=== PATIENT | female | born 1980 | race Caucasian/White ===

== ENCOUNTER 2017-11-02 04:16 | Inpatient (IN) | payer OTHER ==
[2017-11-02] MEDS: HYDROmorphONE 1 MG/ML SYG IV (04:35)
[2017-11-02] MEDS ORDERED: NITROGLYCERIN (SL) 0.4 MG TAB SL (05:00)
[2017-11-02] MEDS ORDERED: ONDANSETRON 4 MG INJ IV (05:00)
[2017-11-02] MEDS ORDERED: VANCOMYCIN IV PER PHARMACY XX (05:00)
[2017-11-02] MEDS: PANTOPRAZOLE 40 MG INJ IV (06:27)
[2017-11-02] MEDS: HYDROmorphONE 0.5 MG/0.5 ML SYG IV (06:27)
[2017-11-02] MEDS: CIPROFLOXACIN 400MG/D5W 200 ML IVPB (06:28)
[2017-11-02] MEDS: SOD CHLORIDE 0.9% 1,000 ML IV ×2 (06:28→14:26)
[2017-11-02 07:00] LABS: ADD MAN DIFF? NO
[2017-11-02 07:05] LABS: WHITE BLOOD COUNT 8.3 10^3/ul (4.8-10.8)
[2017-11-02 07:05] LABS: BASOPHILS % 0.4 % (0.0-2.0); EOSINOPHILS # 0.2 10^3/ul (0.0-0.5); EOSINOPHILS % 1.8 % (0.0-7.0); HEMATOCRIT 28.2 % (37.0-47.0); HEMOGLOBIN 9.1 g/dl (12.0-16.0); LYMPHOCYTES # 2.6 10^3/ul (0.8-2.9); LYMPHOCYTES % 30.8 % (15.0-51.0); MEAN CORPUSCULAR HEMOGLOBIN 30.3 pg (29.0-33.0); MEAN CORPUSCULAR HGB CONC 32.3 g/dl (32.0-37.0); MEAN PLATELET VOLUME 9.5 fl (7.4-10.4); MONOCYTE # 0.4 10^3/ul (0.3-0.9); MONOCYTES % 4.2 % (0.0-11.0); NEUTROPHIL # 5.2 10^3/ul (1.6-7.5); NEUTROPHILS % 62.4 % (39.0-77.0); PLATELET COUNT 450 10^3/UL (140-415); RED CELL DISTRIBUTION WIDTH 14.2 % (11.5-14.5)
[2017-11-02 07:15] LABS: ADD UMIC YES; UR ASCORBIC ACID NEGATIVE (NEGATIVE); UR BILIRUBIN (Dip) NEGATIVE (NEGATIVE); UR BLOOD (Dip) NEGATIVE (NEGATIVE); UR CLARITY CLEAR (CLEAR); UR COLOR YELLOW (YELLOW); UR GLUCOSE (Dip) NEGATIVE (NEGATIVE); UR KETONES (Dip) NEGATIVE (NEGATIVE); UR LEUKOCYTE ESTERASE (Dip) NEGATIVE Leu/ul (NEGATIVE); UR NITRITE (Dip) POSITIVE (NEGATIVE); UR RBC 1 /HPF (0-5); UR SPECIFIC GRAVITY (Dip) 1.016 (1.003-1.030); UR TOTAL PROTEIN (Dip) NEGATIVE (NEGATIVE); UR UROBILINOGEN (Dip) NEGATIVE (NEGATIVE); UR WBC 5 /HPF (0-5)
[2017-11-02 07:19] LABS: LACTIC ACID 1.1 mmol/L (0.5-2.0)
[2017-11-02 07:21] LABS: ALANINE AMINOTRANSFERASE 27 IU/L (13-69); ALBUMIN/GLOBULIN RATIO 0.93; ALKALINE PHOSPHATASE 113 IU/L (42-121); ANION GAP 12 (8-16); ASPARTATE AMINO TRANSFERASE 54 IU/L (15-46); BILIRUBIN,INDIRECT 0.2 mg/dl (0-1.1); BILIRUBIN,TOTAL 0.2 mg/dl (0.2-1.3); BLOOD UREA NITROGEN 7 mg/dl (7-20); CARBON DIOXIDE 24 mmol/L (21-31); CHLORIDE 108 mmol/L (97-110); CREATININE 0.39 mg/dl (0.44-1.00); GLUCOSE 92 mg/dl (70-220); POTASSIUM 3.8 mmol/L (3.5-5.1); SODIUM 140 mmol/L (135-144); TOTAL PROTEIN 8.3 g/dl (6.1-8.1)
[2017-11-02 07:22] LABS: MAGNESIUM 1.9 mg/dl (1.7-2.5)
[2017-11-02 07:28] LABS: AMPHETAMINE/METHAMPHETAMINE Negative (NEGATIVE); BARBITURATES Negative (NEGATIVE); BENZODIAZEPINES Negative (NEGATIVE); CANNABINOIDS Negative (NEGATIVE); COCAINE Negative (NEGATIVE); OPIATES Positive (NEGATIVE)
[2017-11-02 07:34] LABS: HEMOGLOBIN A1C 5.7 % (0-5.9)
[2017-11-02] MEDS: VANCOMYCIN 2 GM in SOD CHLORIDE 0.9% 500 ML IVPB (07:37)
[2017-11-02 08:10] LABS: ETHANOL < 10.0 mg/dl
[2017-11-02] MEDS ORDERED: AZTREONAM 1 GM/NS (PMX) 50 ML IVPB (09:00)
[2017-11-02] MEDS: BACLOFEN 10 MG TAB PO ×2 (11:08→21:39)
[2017-11-02] MEDS: ACETAMINOPHEN 650MG/20.3ML CUP PO (11:12)
[2017-11-02 12:18] LABS: HIV 1&2 ANTIBODY REACTIVE (NEGATIVE)
[2017-11-02] MEDS: FLUCONAZOLE 100 MG/50 ML (PMX) 50 ML IVPB (12:31)
[2017-11-02] MEDS: METHADONE (1 MG/ML 5 ML PO UD SYG) PO ×2 (13:26→21:39)
[2017-11-02] MEDS: MEROPENEM 1 GM/50ML(PMX) 50 ML IVPB ×2 (13:26→21:39)
[2017-11-02] MEDS: VANCOMYCIN 1.25 GM in SOD CHLORIDE 0.9% 250 ML IVPB (15:21)
[2017-11-03] MEDS: ACETAMINOPHEN 650MG/20.3ML CUP PO ×3 (00:20→14:06)
[2017-11-03] MEDS: SOD CHLORIDE 0.9% 1,000 ML IV ×3 (00:20→20:41)
[2017-11-03] MEDS: VANCOMYCIN 1.25 GM in SOD CHLORIDE 0.9% 250 ML IVPB ×2 (00:20→11:07)
[2017-11-03 05:10] LABS: ADD MAN DIFF? NO
[2017-11-03 05:11] LABS: BASOPHILS % 0.3 % (0.0-2.0); EOSINOPHILS # 0.2 10^3/ul (0.0-0.5); EOSINOPHILS % 2.3 % (0.0-7.0); HEMOGLOBIN 8.9 g/dl (12.0-16.0); LYMPHOCYTES % 28.9 % (15.0-51.0); MEAN CORPUSCULAR HEMOGLOBIN 29.7 pg (29.0-33.0); MEAN CORPUSCULAR HGB CONC 31.8 g/dl (32.0-37.0); MEAN CORPUSCULAR VOLUME 93.3 fl (82.0-101.0); MEAN PLATELET VOLUME 9.4 fl (7.4-10.4); MONOCYTE # 0.3 10^3/ul (0.3-0.9); MONOCYTES % 4.3 % (0.0-11.0); NEUTROPHIL # 4.4 10^3/ul (1.6-7.5); NEUTROPHILS % 63.8 % (39.0-77.0); PLATELET COUNT 404 10^3/UL (140-415); RED CELL DISTRIBUTION WIDTH 13.8 % (11.5-14.5)
[2017-11-03 05:31] LABS: MAGNESIUM 1.9 mg/dl (1.7-2.5)
[2017-11-03 05:33] LABS: ANION GAP 10 (8-16); BLOOD UREA NITROGEN 8 mg/dl (7-20); CALCIUM 9.2 mg/dl (8.4-10.2); CARBON DIOXIDE 25 mmol/L (21-31); CHLORIDE 110 mmol/L (97-110); CREATININE 0.48 mg/dl (0.44-1.00); GLUCOSE 100 mg/dl (70-220); POTASSIUM 3.9 mmol/L (3.5-5.1); SODIUM 141 mmol/L (135-144)
[2017-11-03 05:36] LABS: C-REACTIVE PROTEIN 2.5 mg/dl (0.0-0.9)
[2017-11-03] MEDS: MEROPENEM 1 GM/50ML(PMX) 50 ML IVPB ×2 (05:38→14:00)
[2017-11-03] MEDS: METHADONE (1 MG/ML 5 ML PO UD SYG) PO ×3 (05:39→22:00)
[2017-11-03] MEDS: PANTOPRAZOLE 40 MG INJ IV (05:39)
[2017-11-03] MEDS ORDERED: CEFAZOLIN 1 GM INJ (07:00)
[2017-11-03] MEDS ORDERED: DEXAMETHASONE 4 MG/ML 1 ML INJ (07:00)
[2017-11-03] MEDS ORDERED: ONDANSETRON 4 MG INJ (07:00)
[2017-11-03] MEDS ORDERED: LIDOCAINE 2% (SDV) 5 ML INJ (07:00)
[2017-11-03] MEDS ORDERED: PROPOFOL 200 MG INJ (07:00)
[2017-11-03 07:16] LABS: ERYTHROCYTE SEDIMENTATION RATE 135 mm/Hr (0-20)
[2017-11-03 08:50] LABS: VANCOMYCIN,TROUGH 10.5 ug/ml (10.0-20.0)
[2017-11-03] MEDS: METHYLNALTREXONE 12 MG/0.6 ML VIAL SC (10:00)
[2017-11-03] MEDS: BACLOFEN 10 MG TAB PO ×3 (10:35→21:00)
[2017-11-03] MEDS: POLYETHYLENE GLYCOL 17 GM PACKET PO (10:36)
[2017-11-03 13:31] LABS: LYMPHOCYTE - % CD4 (HELPER) 21 % (30-61); LYMPHOCYTE - %CD8 (SUPPRESSOR) 59 % (12-42); LYMPHOCYTE - ABSOLUTE 2265 cells/uL (850-3900); LYMPHOCYTE - ABSOLUTE CD4 486 cells/uL (490-1740); LYMPHOCYTE - ABSOLUTE CD8 1336 cells/uL (180-1170); LYMPHOCYTE - CD4/CD8 RATIO 0.36 (0.86-5.00)
[2017-11-03 15:12] LABS: RAPID PLASMA REAGIN NONREACTIVE (NR)
[2017-11-03] MEDS: FLUCONAZOLE 100 MG/50 ML (PMX) 50 ML IVPB (16:19)
[2017-11-03] MEDS: VANCOMYCIN 1.5 GM in SOD CHLORIDE 0.9% 250 ML IVPB (18:38)
[2017-11-03] MEDS ORDERED: morphine 10 MG INJ (21:59)
[2017-11-03] MEDS ORDERED: ROCURONIUM 50 MG INJ (22:37)
[2017-11-03] MEDS ORDERED: SUGAMMADEX SODIUM 200 MG/2 ML VIAL IV (22:38)
[2017-11-03] MEDS: CEFAZOLIN 1 GM INJ (23:23)
[2017-11-03] MEDS: GELATIN SIZE 100 SPONGE (23:24)
[2017-11-03] MEDS: HEPARIN 1000 UNITS/ML 10 ML INJ (23:24)
[2017-11-03] MEDS: THROMBIN 5000 UNIT VIAL (23:25)
[2017-11-04] MEDS ORDERED: DEXAMETHASONE 4 MG/ML 1 ML INJ ×2 (00:55→23:43)
[2017-11-04] MEDS ORDERED: ONDANSETRON 4 MG INJ ×2 (00:56→23:43)
[2017-11-04] MEDS ORDERED: SUGAMMADEX SODIUM 200 MG/2 ML VIAL IV (01:23)
[2017-11-04] MEDS ORDERED: HYDROmorphONE 0.5 MG/0.5 ML SYG IV ×2 (01:30)
[2017-11-04] MEDS ORDERED: DIPHENHYDRAMINE 50 MG INJ IV (01:30)
[2017-11-04] MEDS ORDERED: LABETALOL HCL 20MG INJ IV (01:30)
[2017-11-04] MEDS ORDERED: ALBUTEROL 0.083% (NEB) 2.5 MG/3 ML AMP HHN (01:30)
[2017-11-04] MEDS ORDERED: EPHEDrine SULFATE 50 MG/5 ML SYG IV (01:30)
[2017-11-04] MEDS ORDERED: MIDAZOLAM 1 MG/ML 2 ML INJ IV (01:30)
[2017-11-04] MEDS ORDERED: hydrALAzine 20 MG INJ IV (01:30)
[2017-11-04] MEDS ORDERED: METOCLOPRAMIDE 10 MG INJ IV (01:30)
[2017-11-04] MEDS ORDERED: MEPERIDINE 25 MG INJ IV (01:30)
[2017-11-04] MEDS ORDERED: ONDANSETRON 4 MG INJ IV (01:30)
[2017-11-04] MEDS: HYDROmorphONE 0.5 MG/0.5 ML SYG IV ×3 (01:43→04:36)
[2017-11-04] MEDS: MEROPENEM 1 GM/50ML(PMX) 50 ML IVPB ×4 (01:54→21:40)
[2017-11-04] MEDS: VANCOMYCIN 1.5 GM in SOD CHLORIDE 0.9% 250 ML IVPB ×3 (02:47→17:51)
[2017-11-04 05:33] LABS: ADD MAN DIFF? NO
[2017-11-04 05:46] LABS: BASOPHILS % 0.3 % (0.0-2.0); HEMATOCRIT 26.6 % (37.0-47.0); HEMOGLOBIN 8.5 g/dl (12.0-16.0); LYMPHOCYTES # 1.3 10^3/ul (0.8-2.9); LYMPHOCYTES % 11.2 % (15.0-51.0); MEAN CORPUSCULAR HEMOGLOBIN 29.9 pg (29.0-33.0); MEAN CORPUSCULAR VOLUME 93.7 fl (82.0-101.0); MONOCYTE # 0.3 10^3/ul (0.3-0.9); MONOCYTES % 2.5 % (0.0-11.0); NEUTROPHIL # 10.2 10^3/ul (1.6-7.5); NEUTROPHILS % 85.2 % (39.0-77.0); PLATELET COUNT 403 10^3/UL (140-415); RED BLOOD COUNT 2.84 10^6/ul (4.20-5.40); RED CELL DISTRIBUTION WIDTH 14.2 % (11.5-14.5)
[2017-11-04 06:09] LABS: MAGNESIUM 1.8 mg/dl (1.7-2.5)
[2017-11-04] MEDS: METHADONE (1 MG/ML 5 ML PO UD SYG) PO ×3 (06:22→21:40)
[2017-11-04] MEDS: PANTOPRAZOLE 40 MG INJ IV (06:22)
[2017-11-04 06:49] LABS: ALANINE AMINOTRANSFERASE 30 IU/L (13-69); ALBUMIN 3.1 g/dl (3.3-4.9); ALBUMIN/GLOBULIN RATIO 0.81; ALKALINE PHOSPHATASE 89 IU/L (42-121); ANION GAP 12 (8-16); ASPARTATE AMINO TRANSFERASE 67 IU/L (15-46); BILIRUBIN,INDIRECT 0.3 mg/dl (0-1.1); BILIRUBIN,TOTAL 0.3 mg/dl (0.2-1.3); BLOOD UREA NITROGEN 7 mg/dl (7-20); CALCIUM 8.1 mg/dl (8.4-10.2); CARBON DIOXIDE 20 mmol/L (21-31); CHLORIDE 110 mmol/L (97-110); CREATININE 0.44 mg/dl (0.44-1.00); GLUCOSE 112 mg/dl (70-220); POTASSIUM 4.3 mmol/L (3.5-5.1); SODIUM 138 mmol/L (135-144); TOTAL PROTEIN 6.9 g/dl (6.1-8.1)
[2017-11-04] MEDS: POLYETHYLENE GLYCOL 17 GM PACKET PO (08:33)
[2017-11-04] MEDS: BACLOFEN 10 MG TAB PO ×3 (08:33→21:00)
[2017-11-04] MEDS: ACETAMINOPHEN 650MG/20.3ML CUP PO (08:33)
[2017-11-04] MEDS: METHYLNALTREXONE 12 MG/0.6 ML VIAL SC (10:00)
[2017-11-04] MEDS: FLUCONAZOLE 100 MG/50 ML (PMX) 50 ML IVPB (14:32)
[2017-11-04] MEDS: SOD CHLORIDE 0.9% 1,000 ML IV ×2 (16:16→20:00)
[2017-11-04] MEDS: LIDOCAINE 1% (MPF) 5 ML VIAL SC (16:30)
[2017-11-04] MEDS: SOD CHLORIDE 0.9% 100 ML (16:35)
[2017-11-04] MEDS ORDERED: PROPOFOL 20 ML (22:48)
[2017-11-04] MEDS ORDERED: SUCCINYLCHOLINE CHLORIDE 100 MG/5 ML SYG IV (22:48)
[2017-11-04] MEDS ORDERED: ROCURONIUM 50 MG INJ (22:48)
[2017-11-04] MEDS ORDERED: MIDAZOLAM 1 MG/ML 2 ML INJ (22:48)
[2017-11-04] MEDS ORDERED: LIDOCAINE 2% (SDV) 5 ML INJ (22:48)
[2017-11-04] MEDS ORDERED: FENTAnyl 50 MCG/ML VIAL (22:49)
[2017-11-04] MEDS ORDERED: FAMOTIDINE 20 MG INJ (23:44)
[2017-11-05] MEDS: ROPIVACAINE 0.5 % 30 ML VIAL (00:02)
[2017-11-05] MEDS ORDERED: ESMOLOL 10 ML (00:10)
[2017-11-05] MEDS ORDERED: HYDROmorphONE 2 MG/ML SYG (00:10)
[2017-11-05] MEDS ORDERED: PROPOFOL 20 ML (00:11)
[2017-11-05] MEDS: POLYMYXIN/BACITRACIN 1L IRRIG (00:20)
[2017-11-05] MEDS ORDERED: HYDROmorphONE 0.5 MG/0.5 ML SYG IV ×3 (00:30)
[2017-11-05] MEDS ORDERED: DIPHENHYDRAMINE 50 MG INJ IV (00:30)
[2017-11-05] MEDS ORDERED: LABETALOL HCL 20MG INJ IV (00:30)
[2017-11-05] MEDS ORDERED: FENTAnyl 50 MCG/ML VIAL IV ×3 (00:30)
[2017-11-05] MEDS ORDERED: SUGAMMADEX SODIUM 200 MG/2 ML VIAL IV (00:30)
[2017-11-05] MEDS ORDERED: MEPERIDINE 25 MG INJ IV (00:30)
[2017-11-05] MEDS ORDERED: hydrALAzine 20 MG INJ IV (00:30)
[2017-11-05] MEDS ORDERED: ONDANSETRON 4 MG INJ IV (00:30)
[2017-11-05 01:55] LABS: VANCOMYCIN,TROUGH 13.6 ug/ml (10.0-20.0)
[2017-11-05] MEDS: SOD CHLORIDE 0.9% 1,000 ML IV ×3 (02:41→22:41)
[2017-11-05] MEDS: VANCOMYCIN 1.5 GM in SOD CHLORIDE 0.9% 250 ML IVPB ×3 (03:04→17:14)
[2017-11-05 05:10] LABS: ADD MAN DIFF? NO
[2017-11-05 05:35] LABS: BASOPHILS % 0.1 % (0.0-2.0); HEMATOCRIT 25.4 % (37.0-47.0); HEMOGLOBIN 8.1 g/dl (12.0-16.0); LYMPHOCYTES # 1.6 10^3/ul (0.8-2.9); LYMPHOCYTES % 18.2 % (15.0-51.0); MEAN CORPUSCULAR HEMOGLOBIN 30.3 pg (29.0-33.0); MEAN CORPUSCULAR HGB CONC 31.9 g/dl (32.0-37.0); MEAN CORPUSCULAR VOLUME 95.1 fl (82.0-101.0); MEAN PLATELET VOLUME 9.8 fl (7.4-10.4); MONOCYTE # 0.4 10^3/ul (0.3-0.9); MONOCYTES % 4.7 % (0.0-11.0); NEUTROPHIL # 6.8 10^3/ul (1.6-7.5); NEUTROPHILS % 76.7 % (39.0-77.0); PLATELET COUNT 383 10^3/UL (140-415); RED BLOOD COUNT 2.67 10^6/ul (4.20-5.40)
[2017-11-05 05:35] LABS: WHITE BLOOD COUNT 8.8 10^3/ul (4.8-10.8)
[2017-11-05] MEDS: PANTOPRAZOLE 40 MG INJ IV (05:41)
[2017-11-05] MEDS: MEROPENEM 1 GM/50ML(PMX) 50 ML IVPB ×3 (05:41→21:52)
[2017-11-05 05:43] LABS: MAGNESIUM 2.1 mg/dl (1.7-2.5)
[2017-11-05 05:47] LABS: ANION GAP 12 (8-16); BLOOD UREA NITROGEN 10 mg/dl (7-20); CALCIUM 9.2 mg/dl (8.4-10.2); CARBON DIOXIDE 26 mmol/L (21-31); CHLORIDE 104 mmol/L (97-110); CREATININE 0.42 mg/dl (0.44-1.00); GLUCOSE 132 mg/dl (70-220); POTASSIUM 4.4 mmol/L (3.5-5.1); SODIUM 138 mmol/L (135-144)
[2017-11-05] MEDS: METHADONE (1 MG/ML 5 ML PO UD SYG) PO ×3 (05:53→21:52)
[2017-11-05 06:00] LABS: PHOSPHORUS 3.4 mg/dl (2.5-4.9)
[2017-11-05] MEDS: POLYETHYLENE GLYCOL 17 GM PACKET PO (08:29)
[2017-11-05] MEDS: METHYLNALTREXONE 12 MG/0.6 ML VIAL SC (08:29)
[2017-11-05] MEDS: BACLOFEN 10 MG TAB PO ×3 (08:30→20:33)
[2017-11-05] MEDS: HYDROmorphONE 1 MG/ML SYG IV (11:58)
[2017-11-05] MEDS: FLUCONAZOLE 100 MG/50 ML (PMX) 50 ML IVPB (12:47)
[2017-11-05] MEDS: ACETAMINOPHEN 650MG/20.3ML CUP PO (20:33)
[2017-11-06] MEDS: VANCOMYCIN 1.5 GM in SOD CHLORIDE 0.9% 250 ML IVPB (02:29)
[2017-11-06] MEDS: HYDROmorphONE 1 MG/ML SYG IV ×3 (02:42→16:47)
[2017-11-06 05:28] LABS: ADD MAN DIFF? NO
[2017-11-06 05:36] LABS: BASOPHILS % 0.3 % (0.0-2.0); EOSINOPHILS % 0.4 % (0.0-7.0); HEMOGLOBIN 8.1 g/dl (12.0-16.0); LYMPHOCYTES # 2.4 10^3/ul (0.8-2.9); LYMPHOCYTES % 30.2 % (15.0-51.0); MEAN CORPUSCULAR HEMOGLOBIN 30.2 pg (29.0-33.0); MEAN CORPUSCULAR HGB CONC 31.2 g/dl (32.0-37.0); MEAN PLATELET VOLUME 9.9 fl (7.4-10.4); MONOCYTE # 0.6 10^3/ul (0.3-0.9); MONOCYTES % 7.3 % (0.0-11.0); NEUTROPHIL # 4.8 10^3/ul (1.6-7.5); NEUTROPHILS % 61.3 % (39.0-77.0); PLATELET COUNT 397 10^3/UL (140-415); RED BLOOD COUNT 2.68 10^6/ul (4.20-5.40); RED CELL DISTRIBUTION WIDTH 14.1 % (11.5-14.5)
[2017-11-06 05:36] LABS: WHITE BLOOD COUNT 7.8 10^3/ul (4.8-10.8)
[2017-11-06 06:00] LABS: MAGNESIUM 1.9 mg/dl (1.7-2.5)
[2017-11-06] MEDS: MEROPENEM 1 GM/50ML(PMX) 50 ML IVPB (06:05)
[2017-11-06] MEDS: PANTOPRAZOLE 40 MG INJ IV (06:05)
[2017-11-06] MEDS: METHADONE (1 MG/ML 5 ML PO UD SYG) PO ×2 (06:06→14:53)
[2017-11-06 06:14] LABS: ANION GAP 9 (8-16); BLOOD UREA NITROGEN 10 mg/dl (7-20); CALCIUM 8.7 mg/dl (8.4-10.2); CARBON DIOXIDE 28 mmol/L (21-31); CHLORIDE 106 mmol/L (97-110); CREATININE 0.46 mg/dl (0.44-1.00); GLUCOSE 103 mg/dl (70-220); POTASSIUM 3.8 mmol/L (3.5-5.1); SODIUM 139 mmol/L (135-144)
[2017-11-06 06:20] LABS: PHOSPHORUS 2.7 mg/dl (2.5-4.9)
[2017-11-06] MEDS ORDERED: LIDOCAINE 2% (SDV) 5 ML INJ (07:00)
[2017-11-06] MEDS: POLYETHYLENE GLYCOL 17 GM PACKET PO (08:22)
[2017-11-06] MEDS: BACLOFEN 10 MG TAB PO ×2 (08:22→13:41)
[2017-11-06] MEDS: METHYLNALTREXONE 12 MG/0.6 ML VIAL SC (08:25)
[2017-11-06] MEDS: SOD CHLORIDE 0.9% 1,000 ML IV (08:31)
[2017-11-06] MEDS ORDERED: CEFTRIAXONE 2 GM/50 ML (PMX) 50 ML IVPB (09:00)
[2017-11-06] MEDS: [UNRECOGNIZED DRUG - REMARK] XX (10:42)
[2017-11-06] MEDS: CEFTRIAXONE 2 GM/50 ML (PMX) 50 ML IVPB (12:38)
[2017-11-06] MEDS: FLUCONAZOLE 100 MG/50 ML (PMX) 50 ML IVPB (13:41)
[2017-11-06] MEDS ORDERED: ROPIVACAINE 0.5 % 30 ML VIAL (16:08)
[2017-11-06 17:06] LABS: NIL 0.06 IU/mL; QUANTIFERON(R)-TB GOLD NEGATIVE (NEGATIVE); TB-NIL 0.01 IU/mL
[2017-11-06] MEDS ORDERED: FENTAnyl 50 MCG/ML VIAL (18:04)
[2017-11-06] MEDS ORDERED: MIDAZOLAM 1 MG/ML 2 ML INJ (18:45)
[2017-11-06] MEDS ORDERED: THROMBIN 5000 UNIT VIAL (18:53)
[2017-11-06] MEDS: GELATIN SIZE 100 SPONGE (19:06)
[2017-11-06] MEDS: POLYMYXIN/BACITRACIN 1L IRRIG (19:06)
[2017-11-06] MEDS: THROMBIN 5000 UNIT VIAL (19:06)
[2017-11-06] MEDS ORDERED: DIPHENHYDRAMINE 50 MG INJ IV ×2 (19:30→20:30)
[2017-11-06] MEDS ORDERED: ONDANSETRON 4 MG INJ IV ×2 (19:30→20:30)
[2017-11-06] MEDS ORDERED: ALBUTEROL 0.083% (NEB) 2.5 MG/3 ML AMP HHN ×2 (19:30→20:30)
[2017-11-06] MEDS ORDERED: OXYCODONE/ACETAMINOPHEN (5/325) TAB PO (19:30)
[2017-11-06] MEDS ORDERED: HYDROmorphONE 1 MG/5 ML IV SYRINGE IV ×3 (19:30)
[2017-11-06] MEDS ORDERED: FENTAnyl 50 MCG/ML VIAL IV ×5 (19:30→20:30)
[2017-11-06] MEDS ORDERED: METOCLOPRAMIDE 10 MG INJ IV ×2 (19:30→20:30)
[2017-11-06] MEDS ORDERED: MEPERIDINE 25 MG INJ IV ×2 (19:30→20:30)
[2017-11-06] MEDS ORDERED: CLINDAMYCIN 900 MG/D5W (PMX) 50 ML IVPB (20:06)
[2017-11-06] MEDS ORDERED: PROPOFOL 20 ML (20:06)
[2017-11-06] MEDS ORDERED: ROCURONIUM 50 MG INJ (20:06)
[2017-11-06] MEDS ORDERED: SUCCINYLCHOLINE CHLORIDE 100 MG/5 ML SYG IV (20:06)
[2017-11-06] MEDS ORDERED: SUGAMMADEX SODIUM 200 MG/2 ML VIAL IV (20:06)
[2017-11-06] MEDS ORDERED: HYDROmorphONE 0.5 MG/0.5 ML SYG IV ×3 (20:30)
[2017-11-06] MEDS: FENTAnyl 50 MCG/ML VIAL IV (20:40)
[2017-11-06] MEDS: HYDROmorphONE 2 MG/ML SYG IV (21:19)
[2017-11-06] MEDS ORDERED: KETOROLAC 60 MG INJ IM (21:49)
[2017-11-06] MEDS ORDERED: KETOROLAC 30 MG INJ IM (22:00)
[2017-11-06] MEDS: KETOROLAC 60 MG INJ IM (22:16)
[2017-11-07] MEDS: HYDROmorphONE 2 MG/ML SYG IV ×4 (05:05→20:30)
[2017-11-07 05:10] LABS: ADD MAN DIFF? NO
[2017-11-07 05:16] LABS: WHITE BLOOD COUNT 5.9 10^3/ul (4.8-10.8)
[2017-11-07 05:16] LABS: BASOPHILS % 0.3 % (0.0-2.0); EOSINOPHILS # 0.1 10^3/ul (0.0-0.5); EOSINOPHILS % 2.2 % (0.0-7.0); HEMATOCRIT 24.9 % (37.0-47.0); HEMOGLOBIN 7.8 g/dl (12.0-16.0); LYMPHOCYTES # 1.9 10^3/ul (0.8-2.9); LYMPHOCYTES % 31.7 % (15.0-51.0); MEAN CORPUSCULAR HEMOGLOBIN 29.4 pg (29.0-33.0); MEAN CORPUSCULAR HGB CONC 31.3 g/dl (32.0-37.0); MEAN PLATELET VOLUME 9.6 fl (7.4-10.4); MONOCYTE # 0.6 10^3/ul (0.3-0.9); MONOCYTES % 9.3 % (0.0-11.0); NEUTROPHIL # 3.3 10^3/ul (1.6-7.5); NEUTROPHILS % 55.8 % (39.0-77.0); PLATELET COUNT 341 10^3/UL (140-415); RED BLOOD COUNT 2.65 10^6/ul (4.20-5.40); RED CELL DISTRIBUTION WIDTH 13.9 % (11.5-14.5)
[2017-11-07 05:34] LABS: ANION GAP 8 (8-16); BLOOD UREA NITROGEN 9 mg/dl (7-20); CALCIUM 8.9 mg/dl (8.4-10.2); CARBON DIOXIDE 29 mmol/L (21-31); CHLORIDE 106 mmol/L (97-110); GLUCOSE 99 mg/dl (70-220); POTASSIUM 3.7 mmol/L (3.5-5.1); SODIUM 139 mmol/L (135-144)
[2017-11-07] MEDS: POLYETHYLENE GLYCOL 17 GM PACKET PO (08:40)
[2017-11-07] MEDS: METHYLNALTREXONE 12 MG/0.6 ML VIAL SC (08:42)
[2017-11-07] MEDS: CEFTRIAXONE 2 GM/50 ML (PMX) 50 ML IVPB (12:31)
[2017-11-07] MEDS: FLUCONAZOLE 100 MG/50 ML (PMX) 50 ML IVPB (12:38)
[2017-11-07] MEDS: ACETAMINOPHEN 650MG/20.3ML CUP PO ×2 (13:55→20:55)
[2017-11-07] MEDS: GABAPENTIN 100 MG CAP PO (20:36)
[2017-11-08] MEDS: HYDROmorphONE 2 MG/ML SYG IV ×4 (04:14→22:19)
[2017-11-08 04:58] LABS: ADD MAN DIFF? NO
[2017-11-08 05:01] LABS: BASOPHILS % 0.3 % (0.0-2.0); EOSINOPHILS # 0.2 10^3/ul (0.0-0.5); EOSINOPHILS % 2.5 % (0.0-7.0); HEMATOCRIT 26.7 % (37.0-47.0); HEMOGLOBIN 8.4 g/dl (12.0-16.0); LYMPHOCYTES % 29.2 % (15.0-51.0); MEAN CORPUSCULAR HEMOGLOBIN 29.8 pg (29.0-33.0); MEAN CORPUSCULAR HGB CONC 31.5 g/dl (32.0-37.0); MEAN CORPUSCULAR VOLUME 94.7 fl (82.0-101.0); MONOCYTE # 0.6 10^3/ul (0.3-0.9); MONOCYTES % 9.2 % (0.0-11.0); NEUTROPHILS % 58.1 % (39.0-77.0); PLATELET COUNT 378 10^3/UL (140-415); RED BLOOD COUNT 2.82 10^6/ul (4.20-5.40); RED CELL DISTRIBUTION WIDTH 13.4 % (11.5-14.5)
[2017-11-08 05:01] LABS: WHITE BLOOD COUNT 6.9 10^3/ul (4.8-10.8)
[2017-11-08 05:24] LABS: ANION GAP 9 (8-16); BLOOD UREA NITROGEN 5 mg/dl (7-20); CALCIUM 8.9 mg/dl (8.4-10.2); CARBON DIOXIDE 29 mmol/L (21-31); CHLORIDE 102 mmol/L (97-110); CREATININE 0.38 mg/dl (0.44-1.00); GLUCOSE 105 mg/dl (70-220); POTASSIUM 3.8 mmol/L (3.5-5.1); SODIUM 136 mmol/L (135-144)
[2017-11-08] MEDS: GABAPENTIN 100 MG CAP PO ×3 (09:05→20:48)
[2017-11-08] MEDS: POLYETHYLENE GLYCOL 17 GM PACKET PO (09:06)
[2017-11-08] MEDS: METHYLNALTREXONE 12 MG/0.6 ML VIAL SC (09:18)
[2017-11-08] MEDS: KETOROLAC 30 MG INJ IM (11:19)
[2017-11-08] MEDS: KETOROLAC 30 MG INJ IV (11:29)
[2017-11-08] MEDS: CEFTRIAXONE 2 GM/50 ML (PMX) 50 ML IVPB (13:46)
[2017-11-08] MEDS: FLUCONAZOLE 100 MG/50 ML (PMX) 50 ML IVPB (14:30)
[2017-11-09] MEDS: HYDROmorphONE 2 MG/ML SYG IV ×4 (02:23→23:23)
[2017-11-09] MEDS: POLYETHYLENE GLYCOL 17 GM PACKET PO (09:02)
[2017-11-09] MEDS: GABAPENTIN 100 MG CAP PO ×3 (09:02→20:44)
[2017-11-09] MEDS: METHYLNALTREXONE 12 MG/0.6 ML VIAL SC (09:02)
[2017-11-09] MEDS: FLUCONAZOLE 100 MG/50 ML (PMX) 50 ML IVPB (12:40)
[2017-11-09] MEDS: CEFTRIAXONE 2 GM/50 ML (PMX) 50 ML IVPB (13:36)
[2017-11-09] MEDS: HYDROCODONE/APAP (5/325) TAB PO ×2 (16:37→20:42)
[2017-11-10] MEDS: BISACODYL (EC) 5 MG TAB PO (05:59)
[2017-11-10] MEDS: LACTULOSE 30ML CUP PO ×3 (05:59→18:00)
[2017-11-10] MEDS: HYDROCODONE/APAP (5/325) TAB PO ×2 (08:01→19:55)
[2017-11-10] MEDS: POLYETHYLENE GLYCOL 17 GM PACKET PO (08:09)
[2017-11-10] MEDS: GABAPENTIN 100 MG CAP PO ×3 (08:09→20:01)
[2017-11-10] MEDS: HYDROmorphONE 2 MG/ML SYG IV (09:53)
[2017-11-10] MEDS ORDERED: NA PHOSPHATE/BIPHOS 133 ML ENEMA PR (11:30)
[2017-11-10] MEDS: CEFTRIAXONE 2 GM/50 ML (PMX) 50 ML IVPB (13:27)
[2017-11-10] MEDS: HYDROmorphONE 4 MG TAB PO (14:15)
[2017-11-10] MEDS: BACLOFEN 10 MG TAB PO (14:15)
[2017-11-11] MEDS: LACTULOSE 30ML CUP PO ×3 (00:07→12:20)
[2017-11-11] MEDS: HYDROCODONE/APAP (5/325) TAB PO ×4 (00:07→16:08)
[2017-11-11] MEDS: KETOROLAC 30 MG INJ IV (03:39)
[2017-11-11 05:49] LABS: ADD MAN DIFF? NO
[2017-11-11] MEDS: ACETAMINOPHEN 650MG/20.3ML CUP PO (05:50)
[2017-11-11 05:56] LABS: BASOPHILS % 0.6 % (0.0-2.0); EOSINOPHILS # 0.2 10^3/ul (0.0-0.5); EOSINOPHILS % 5.5 % (0.0-7.0); HEMATOCRIT 48.5 % (37.0-47.0); HEMOGLOBIN 15.1 g/dl (12.0-16.0); LYMPHOCYTES # 1.6 10^3/ul (0.8-2.9); LYMPHOCYTES % 46.7 % (15.0-51.0); MEAN CORPUSCULAR HEMOGLOBIN 28.3 pg (29.0-33.0); MEAN CORPUSCULAR HGB CONC 31.1 g/dl (32.0-37.0); MONOCYTE # 0.2 10^3/ul (0.3-0.9); MONOCYTES % 6.9 % (0.0-11.0); NEUTROPHIL # 1.4 10^3/ul (1.6-7.5); NEUTROPHILS % 39.4 % (39.0-77.0); PLATELET COUNT 321 10^3/UL (140-415); RED BLOOD COUNT 5.33 10^6/ul (4.20-5.40); RED CELL DISTRIBUTION WIDTH 13.4 % (11.5-14.5)
[2017-11-11 05:56] LABS: WHITE BLOOD COUNT 3.5 10^3/ul (4.8-10.8)
[2017-11-11 06:29] LABS: ANION GAP 15 (8-16); BLOOD UREA NITROGEN 12 mg/dl (7-20); CALCIUM 9.9 mg/dl (8.4-10.2); CARBON DIOXIDE 26 mmol/L (21-31); CHLORIDE 99 mmol/L (97-110); CREATININE 0.43 mg/dl (0.44-1.00); GLUCOSE 106 mg/dl (70-220); POTASSIUM 4.3 mmol/L (3.5-5.1); SODIUM 136 mmol/L (135-144)
[2017-11-11 07:50] LABS: ERYTHROCYTE SEDIMENTATION RATE 131 mm/Hr (0-20)
[2017-11-11] MEDS: BACLOFEN 10 MG TAB PO ×2 (08:02→16:07)
[2017-11-11] MEDS: SENNA/DOCUSATE NA (8.6MG/50MG) TAB PO (10:18)
[2017-11-11] MEDS: POLYETHYLENE GLYCOL 17 GM PACKET PO (10:19)
[2017-11-11] MEDS: GABAPENTIN 100 MG CAP PO ×2 (10:19→12:25)
[2017-11-11] MEDS: HYDROmorphONE 4 MG TAB PO (11:52)
[2017-11-11] MEDS: CEFTRIAXONE 2 GM/50 ML (PMX) 50 ML IVPB (12:20)
== END 2017-11-11 17:37 | disposition home or self-care (01) | DRG 453 ==
LOC: PP2 11-08 07:25 → ICU 04:16
PROC: 0SG10A0 Fusion of 2 or more Lumbar Vertebral Joints with Interbody Fusion Device, Anterior Approach, Anterior Column, Open Approach (ICD-10-PCS; principal; 2017-11-03 01:18)
PROC: 0SB20ZZ Excision of Lumbar Vertebral Disc, Open Approach (ICD-10-PCS; 2017-11-03 01:18)
PROC: 0SG10K1 Fusion of 2 or more Lumbar Vertebral Joints with Nonautologous Tissue Substitute, Posterior Approach, Posterior Column, Open Approach (ICD-10-PCS; 2017-11-03 21:38)
PROC: 0SP00AZ Removal of Interbody Fusion Device from Lumbar Vertebral Joint, Open Approach (ICD-10-PCS; 2017-11-03 21:38)
PROC: 0SH008Z Insertion of Spacer into Lumbar Vertebral Joint, Open Approach (ICD-10-PCS; 2017-11-03 21:38)
PROC: 02HV33Z Insertion of Infusion Device into Superior Vena Cava, Percutaneous Approach (ICD-10-PCS; 2017-11-03 21:38)
DX: M46.46 Discitis, unspecified, lumbar region (principal); G06.1 Intraspinal abscess and granuloma; N39.0 Urinary tract infection, site not specified; B37.0 Candidal stomatitis; T85.628A Displacement of other specified internal prosthetic devices, implants and grafts, initial encounter; M46.26 Osteomyelitis of vertebra, lumbar region; F17.200 Nicotine dependence, unspecified, uncomplicated; K13.3 Hairy leukoplakia; N70.93 Salpingitis and oophoritis, unspecified; E66.9 Obesity, unspecified; Z68.34 Body mass index [BMI] 34.0-34.9, adult
CPT/HCPCS: 36569; 71045; 72100; 72110; 72131; 72158; 76830; 76856; 76937; 80048; 80053; 80202; 80307; 81001; 83036; 83605; 83735; 84100; 84443; 84703; 85025; 85651; 86140; 86360; 86480; 86592; 86635; 86701; 86703; 86850; 86900; 86901; 87040; 87070; 87075; 87081; 87086; 87102; 87536; 88300; 88304; 93306; 97110; 97116; 97163; 97530

== ENCOUNTER 2017-11-12 07:36 | Emergency (ER) | payer OTHER ==
[2017-11-12] MEDS: ONDANSETRON 4 MG INJ IV (08:31)
[2017-11-12] MEDS: morphine 4 MG/ML VIAL IV (08:32)
[2017-11-12] MEDS: CEFTRIAXONE 1 GM/50 ML (PMX) 50 ML IVPB (08:32)
[2017-11-12 08:34] LABS: ADD MAN DIFF? NO; BASOPHILS % 0.3 % (0.0-2.0); EOSINOPHILS # 0.4 10^3/ul (0.0-0.5); EOSINOPHILS % 5.9 % (0.0-7.0); HEMATOCRIT 29.4 % (37.0-47.0); HEMOGLOBIN 9.5 g/dl (12.0-16.0); LYMPHOCYTES # 2.8 10^3/ul (0.8-2.9); LYMPHOCYTES % 39.8 % (15.0-51.0); MEAN CORPUSCULAR HEMOGLOBIN 29.8 pg (29.0-33.0); MEAN CORPUSCULAR HGB CONC 32.3 g/dl (32.0-37.0); MEAN CORPUSCULAR VOLUME 92.2 fl (82.0-101.0); MEAN PLATELET VOLUME 9.6 fl (7.4-10.4); MONOCYTE # 0.5 10^3/ul (0.3-0.9); MONOCYTES % 7.2 % (0.0-11.0); NEUTROPHIL # 3.2 10^3/ul (1.6-7.5); NEUTROPHILS % 45.1 % (39.0-77.0); PLATELET COUNT 484 10^3/UL (140-415); RED BLOOD COUNT 3.19 10^6/ul (4.20-5.40); RED CELL DISTRIBUTION WIDTH 13.4 % (11.5-14.5)
[2017-11-12 08:55] LABS: INR 0.98; PROTIME 13.1 Sec (11.9-14.9)
[2017-11-12 08:56] LABS: PARTIAL THROMBOPLASTIN TIME 36.5 Sec (25.0-35.0)
[2017-11-12 09:08] LABS: ALBUMIN/GLOBULIN RATIO 0.93; ANION GAP 13 (8-16)
[2017-11-12 09:28] LABS: ALANINE AMINOTRANSFERASE 24 IU/L (13-69); ALKALINE PHOSPHATASE 191 IU/L (42-121); ASPARTATE AMINO TRANSFERASE 48 IU/L (15-46); BLOOD UREA NITROGEN 12 mg/dl (7-20); CALCIUM 9.6 mg/dl (8.4-10.2); CARBON DIOXIDE 23 mmol/L (21-31); CHLORIDE 102 mmol/L (97-110); CREATININE 0.41 mg/dl (0.44-1.00); GLUCOSE 102 mg/dl (70-220); POTASSIUM 4.2 mmol/L (3.5-5.1); SODIUM 134 mmol/L (135-144)
[2017-11-12 09:29] LABS: ALBUMIN 4.1 g/dl (3.3-4.9); BILIRUBIN,INDIRECT 0.3 mg/dl (0-1.1); BILIRUBIN,TOTAL 0.3 mg/dl (0.2-1.3); TOTAL PROTEIN 8.5 g/dl (6.1-8.1)
[2017-11-12] MEDS: HYDROCODONE/APAP (10/325) TAB PO (14:52)
== END 2017-11-12 15:06 | disposition home or self-care (01) ==
LOC: E/R 07:36
DX: M54.9 Dorsalgia, unspecified (principal); G89.18 Other acute postprocedural pain; F17.210 Nicotine dependence, cigarettes, uncomplicated; R07.9 Chest pain, unspecified
CPT/HCPCS: 80053; 85025; 85610; 85730; 96374; 96375; 99284-25